=== PATIENT | female | born 1940 | race Caucasian/White ===

== ENCOUNTER 2022-03-16 23:10 | Emergency (ER) | payer MEDICARE, OTHER ==
[~2022-03-16] VITALS: Ht 160 cm; Wt 70.3 kg
--- NOTE | 2022-03-16 23:22 | PCM.EKG ---
[facility] Test Date: 2022-03-16 Test Time: 23:20:57 Pat Name: LUIS DESHPANDE Department: Patient ID: [facility]-[id number] Room: Gender: F [employer]: [employer] : 1940 Requested By: SETH DEL CASTILLO Order Number: [id number] Reading MD: Nahum Del Castillo Measurements Intervals [place] Rate: 88 P: 45 OK: 190 QRS: 54 QRSD: 105 T: 30 QT: 371 QTc: 449 Interpretive Statements Sinus rhythm No previous ECG available for comparison Electronically Signed On 03-16-2022 23:43:42 CDT by Nahum Del Castillo Please click the below link to view image of tracing.
[2022-03-16 23:29] VITALS: BP 161/92
[2022-03-16 23:30] LABS: BASOPHIL # 0.1 10^3/uL (0.0-0.1); BASOPHIL % 1.2 % (0.0-0.2); EOSINOPHIL # 0.2 10^3/uL (0.0-0.2); EOSINOPHIL % 2.4 % (0.0-5.0); LYMPHOCYTES # 1.95 10^3/uL1 (1.0-4.8); LYMPHOCYTES % 25.1 % (24.0-44.0); MEAN CORP HGB 27.8 pg (26-34); MONOCYTES # 0.9 10^3/uL (0.3-0.8); MONOCYTES % 12.1 % (5.0-12.0); NEUTROPHIL # 4.6 10^3/uL (1.8-7.7); NEUTROPHILS % 59.1 % (41.0-85.0); PLATELET COUNT 208 10^3/uL (150-400); RED CELL DISTRIBUTION WIDTH 13.7 % (11.5-14.5)
[2022-03-16 23:52] LABS: CARBON DIOXIDE 31.3 mmol/L (20.0-32)
[2022-03-16 23:58] VITALS: BP 138/61
[2022-03-17] MEDS ORDERED: KLOR-CON 10 PO STA
--- NOTE | 2022-03-17 00:03 | ER.PDOC ---
General Chief Complaint: General Complaint Stated Complaint: HYPERTENSION TRAVEL OUT OF US: No (23) Time seen by MD: 23:20 Source: patient, EMS Exam Limitations: no limitations History of Present Illness Initial Comments Patient is an 81-year-old female with past medical history of hypertension who comes in via EMS for elevated blood pressure readings. EMS states that patient has had elevated blood pressure since yesterday up to systolic blood pressure of 200. Patient has been taking her clonidine as well as her otherBlood pressure medications but that it has been high for the past 2 days in a row. EMS states that prior to arrival her blood pressure was systolic 140s to 160s. However patient states that yesterday she had pain up to her left neck and in between her shoulder blades yesterday. She said that it was a difficult pain to explain more like a pressure-like pain however she is currently not having that and has since resolved. She says she does not know what made that pain better or worse. Patient denies any diaphoresis any shortness of breath or any nausea vomiting. Patient's blood pressure on arrival was systolic 160s. Allergies: Coded Allergies: No Known Allergies (Unverified , 03/16/22) Past Medical History Medical History: hypertension Surgical History: Family History Significant Family History: no pertinent family hx Social History Alcohol Use: none Drug Use: none Reviewed Nursing Reviewed: Vital Signs, Abn. Noted, Nursing Assessment Review of Systems Constitutional: denies no symptoms reported, denies see HPI, denies chills, denies diaphoresis, denies fever, denies malaise, denies weakness, denies other EENTM: denies no symptoms reported, denies see HPI, denies eye pain, denies blurred vision, denies tearing, denies double vision, denies ear pain, denies ear discharge, denies nose pain, denies nose congestion, denies throat pain, denies throat swelling, denies mouth pain, denies mouth swelling, denies other Respiratory: denies no symptoms reported, denies see HPI, denies cough, denies orthopnea, denies shortness of breath, denies stridor, denies wheezing, denies other Cardiovascular: denies no symptoms reported, denies see HPI, denies chest pain, denies edema, denies palpitations, denies syncope; other (HTN) Gastrointestinal: denies no symptoms reported, denies see HPI, denies abdominal pain, denies constipation, denies diarrhea, denies nausea, denies vomiting, denies other Genitourinary: denies no symptoms reported, denies see HPI, denies discharge, denies dysuria, denies frequency, denies hematuria, denies pain, denies other Musculoskeletal: back pain (between shoulder blades and neck pain - resolved ) Skin: denies no symptoms reported, denies see HPI, denies change in color, denies change in hair/nails, denies dryness, denies lesions, denies lumps, denies rash, denies other Psychiatric/Neurological: denies no symptoms reported, denies see HPI, denies anxiety, denies depressed, denies emotional problems, denies headache, denies numbness, denies paresthesia, denies pre-existing deficit, denies seizure, denies tingling, denies tremors, denies weakness, denies other Hematologic/Lymphatic: denies no symptoms reported, denies see HPI, denies anemia, denies blood clots, denies easy bleeding, denies easy bruising, denies s wollen glands, denies other Immunological/Allergic: denies no symptoms reported, denies see HPI, denies fo od allergy, denies grass allergy, denies mold allergy, denies pollen allergy, denies HIV/AIDS, denies transplant Physical Exam General Appearance: No Apparent Distress, WD/WN EENT: eyes nml inspection, nml ENT inspection, pharynx nml Neck: Non-Tender, Full Range of Motion, Supple, Normal Inspection Respiratory: chest non-tender, lungs clear, normal breath sounds, no respiratory distress CVS: reg rate & rhythm, no murmur, no gallop, pulses nml, nml capillary refill, other (HTN) Gastrointestinal: Normal Bowel Sounds, No Organomegaly, No Pulsatile Mass, Non Tender Back: Normal Inspection, No CVA Tenderness Extremities: Normal Range of Motion, Non-Tender, Normal Inspection 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, No Motor/Sensory Deficits, Alert, Normal Mood/Affect, Oriented x 3 Skin: Normal Color Lymphatic: No Adenopathy Results/Orders Results/Orders Orders - SETH SIMPSON MD Cbc With Auto Diff (03/16/22 23:16) Comprehensive Metabolic Panel (03/16/22 23:16) Ekg-Routine (03/16/22 23:16) Troponin I High Sensitivity (03/16/22 23:16) Vital Signs Date Time Temp Pulse Resp B/P (MAP) Pulse Ox O2 Delivery O2 Flow Rate FiO2 03/16/22 23:29 97.9 97 16 03/16/22 23:29 97.9 97 16 161/92 (115) 94 Room Air* 0 21 03/16/22 23:29 97.9 97 16 94 Laboratory Tests Test 03/16/22 23:25 White Blood Count 7.8 10^3/uL (4.5-11.0) Red Blood Count 4.75 10^6/uL (4.00-5.20) Hemoglobin 13.2 g/dL (12.0-15.0) Hematocrit 41.4 % (36.0-46.0) Mean Corpuscular Volume 87.2 fL (78-100) Mean Corpuscular Hemoglobin 27.8 pg (26-34) Mean Corpuscular Hemoglobin Concent 31.9 g/dL (33-36.5) L Red Cell Distribution Width 13.7 % (11.5-14.5) Platelet Count 208 10^3/uL (150-400) Mean Platelet Volume 9.9 fL (7.8-11.0) Neutrophils (%) (Auto) 59.1 % (41.0-85.0) Lymphocytes (%) (Auto) 25.1 % (24.0-44.0) Monocytes (%) (Auto) 12.1 % (5.0-12.0) H Neutrophils # (Auto) 4.6 10^3/uL (1.8-7.7) Lymphocytes # (Auto) 1.95 10^3/uL1 (1.0-4.8) Monocytes # (Auto) 0.9 10^3/uL (0.3-0.8) H Absolute Immature Granulocyte (auto 0.01 10^3 u/L (0-2) Absolute Eosinophils (auto) 0.2 10^3/uL (0.0-0.2) Immature Granulocytes % 0.10 % (0.00-0.50) Eosinophils % 2.4 % (0.0-5.0) Basophils % 1.2 % (0.0-0.2) H Basophils # 0.1 10^3/uL (0.0-0.1) Sodium Level 136 mmol/L (132-145) Potassium Level 3.0 mmol/L (3.6-5.2) L Chloride Level 98.0 mmol/L (96-109) Carbon Dioxide Level 31.3 mmol/L (20.0-32) Anion Gap 9.7 Blood Urea Nitrogen 20 mg/dL (7-18) H Creatinine 0.89 mg/dL (0.59-1.40) Estimated GFR () 73.7 (>/=60) Est GFR (CKD-EPI)(Non-Afr [place]) 60.9 (>/=60) BUN/Creatinine Ratio 22.0 Glucose Level 112 mg/dL (70-110) H Calcium Level 9.1 mg/dL (8.4-10.5) Total Bilirubin 0.5 mg/dL (0.2-1.0) Aspartate Amino Transferase (AST) 20 U/L (0-35) Alanine Aminotransferase (ALT) 12 U/L (12-78) Alkaline Phosphatase 40 U/L (50-136) L Troponin I High Sensitivity 11 ng/L (0-50) Total Protein 7.0 g/dL (6.4-8.2) Albumin 3.6 g/dL (3.4-5.0) Globulin 3.4 Albumin/Globulin Ratio 1.058 Progress Progress Patient here of EMS already has a IV we will send off labs will obtain an EKG EMS already gave patient 324 of aspirin. We will continue to monitor patient. 2349reassessmentpatient's blood pressure systolic 138 patient has remained with no symptoms throughout her ER stay will discharge patient with close follow-up. Low risk for ACS or hypertensive emergency. Kidney labs are baseline patient was hypokalemic will give her some replacement before she goes and will give her information on potassium rich foods. ER DEPART Departure Time of Disposition: 00:02 Disposition: 01 HOME / SELF CARE / HOMELESS Impression: Primary Impression: Hypokalemia Additional Impression: Hypertension Condition: Improved Patient Instructions: Hypertension, Hypokalemia Additional Instructions: Please take all medications as prescribed please follow-up with your primary care provider within 1 week. If you have any new persistent or worsening symptoms or concern seek medical attention. Duration or Time Spent with Pa: 35 Problem Qualifiers Additional Impression: Hypertension Hypertension type: unspecified Qualified Codes: I10 - Essential (primary) hypertension SETH SIMPSON MD Mar 17, 2022 00:03
[2022-03-17] MEDS ORDERED: KLOR-CON 10 PO ONE (00:05)
--- NOTE | 2022-03-17 00:19 | NUR ---
EMS IV DC'D TIP INTACT, NO BLEEDING
[2022-03-17 00:20] VITALS: BP 140/67
== END 2022-03-17 00:20 | disposition home or self-care (01) ==
LOC: EDBD 23:10 → ER 23:10
DX: E87.6 Hypokalemia (principal); I10 Essential (primary) hypertension
CPT/HCPCS: 99284; 80053; 85025; 36415; 84484; 93005; J3490

== ENCOUNTER → 2022-05-06 | Outpatient (CLI) | payer MEDICARE, OTHER ==
--- NOTE | 2022-05-09 00:37 | PRP ---
DATE OF PROCEDURE: 05/06/2022 DICTATOR NAME: YNES NOEL DO VENOUS MAPPING ULTRASOUND INDICATION: Chronic venous disease. RIGHT LOWER EXTREMITY: The right greater saphenous vein measures 3 mm in its maximum diameter. There is no evidence of significant reflux. The right small saphenous vein measures 3 mm in its maximum diameter. There is no evidence of significant reflux. There is no evidence of DVT in the right lower extremity. LEFT LOWER EXTREMITY: The left greater saphenous vein measures 3 mm in its maximum diameter. There is no evidence of significant reflux. The left small saphenous vein measures 2 mm in its maximum diameter. There is no evidence of significant reflux. There is no evidence of DVT in the left lower extremity. IMPRESSION: * The bilateral greater saphenous vein does not show significant reflux. * The bilateral small saphenous vein does not show significant reflux. * There is no evidence of deep vein thrombosis in the bilateral lower extremities. Selin ARGUETA D.O. DR: SOPHIE TID: [id number] RECEIPT: [id number]
== END | disposition home or self-care (01) ==
LOC: RAD 13:37
PROVIDERS: ATTEND Nurse Practitioner Family
DX: I87.2 Venous insufficiency (chronic) (peripheral) (principal)
CPT/HCPCS: 93970

== ENCOUNTER → 2022-06-11 | Outpatient (CLI) | payer MEDICARE, OTHER ==
--- NOTE | 2022-06-11 10:52 | PCM.ECHO ---
APPROVED REPORT EXAM: Comprehensive 2D, Doppler, and color-flow Echocardiogram. Patient Location: OUT-PATIENT Indications Hypertension/HDD Chest Pain 2D Dimensions LVOT Diameter 2.06 (1.8-2.4cm) LVEF(%) 58.24 (>50%) M-Mode Dimensions RVDd 0.80 (2.1-3.2cm) Left Atrium(MM) 3.40 (2.5-4.0cm) IVSd 0.95 (0.7-1.1cm) Aortic Root 2.60 (2.2-3.7cm) LVDd 5.20 (4.0-5.6cm) Aortic Cusp Exc 1.70 (1.5-2.0cm) PWd 0.55 (0.7-1.1cm) MV EPSS 0.34 (<0.5cm) IVSs 1.30 cm FS (%) 28.25 % LVDs 3.70 (2.0-3.8cm) ESV(Teich) 59.70 ml PWs 1.05 cm LVEF(%) 54.26 (>50%) Volumes Biplane 2D LV Volumes Biplane 2D LA Volumes LVEDv A4C 113.95 mL LA ESV Index LVESv A4C 47.59 mL Aortic Valve AoV Peak Alejandro. 1.35 m/s AoV VTI 32.20 cm AO Peak GR. 7.40 mmHg AO Mean GR. 4.95 mmHg LVOT VTI 24.91 cm LVOT Peak Alejandro. 1.16 m/s EMILY(VTI)/BSA 2.59 cm2/m2 EMILY (VTI) 2.59 cm2 Mitral Valve MV E Velocity 1.25m/s MR Peak Gr. 43.85mmHg MV A Velocity 1.60m/s TDI Lateral E' P. V 0.12m/s Medial E' P. V 0.10m/s Pulmonary Valve PV Peak Velocity 0.75m/s PV Peak Grad. 2.40mmHg RVOT VTI 15.35cm Tricuspid Valve TR P. Velocity 2.90m/s RAP ESTIMATE 10.00mmHg TR Peak Gr. 33.65mmHg RVSP 43.65mmHg LEFT VENTRICLE The left ventricle is normal size. The left ventricular systolic function is normal. The left ventricular ejection fraction is within the normal range. There is normal left ventricular wall thickness. There is normal LV segmental wall motion. Pseudonormalized E/A reversal consistent with Stage 2 Diastolic Dysfunction. There is no ventricular septal defect visualized. No left ventricle thrombus noted on this study. LVEF is 60-65%. RIGHT VENTRICLE The right ventricle is normal size. The right ventricular systolic function is normal. There is normal right ventricular wall thickness. ATRIA The left atrium size is normal. The right atrium size is normal. The interatrial septum is intact with no evidence for an atrial septal defect. AORTIC VALVE The aortic valve is normal in structure. There is no aortic valvular stenosis. No aortic regurgitation is present. There is no aortic valvular vegetation. MITRAL VALVE The mitral valve is normal in structure. There is no mitral valve stenosis. Mild mitral regurgitation. There is no evidence of mitral valve vegetations. TRICUSPID VALVE The tricuspid valve is normal in structure. There is no tricuspid valve stenosis. Mild tricuspid regurgitation. There is no tricuspid valve vegetations. PULMONIC VALVE Pulmonic valve is not well visualized. There is no pulmonic valvular stenosis. There is no pulmonic valvular regurgitation. GREAT VESSELS The aortic root is normal in size. Pulmonary artery is not well visualized. Aortic arch is not well visualized. The IVC is normal in size and collapses >50% with inspiration. PERICARDIUM There is no pericardial effusion. There is no pleural effusion. Other Information Study Quality: Fair <Conclusion> The left ventricular systolic function is normal. LVEF is 60-65%. Pseudonormalized E/A reversal consistent with Stage 2 Diastolic Dysfunction. Mild mitral regurgitation. Mild tricuspid regurgitation. Electronically signed by : YNES NOEL. 06/11/2022 10:52:37
== END | disposition home or self-care (01) ==
LOC: RAD 08:59
PROVIDERS: ATTEND Internal Medicine Interventional Cardiology
DX: I08.1 Rheumatic disorders of both mitral and tricuspid valves (principal); I10 Essential (primary) hypertension
CPT/HCPCS: 93306

== ENCOUNTER → 2022-06-13 | Outpatient (CLI) | payer MEDICARE, OTHER ==
[~2022-06-13] MED LIST: LEXISCAN IV ONE
--- NOTE | 2022-06-14 02:28 | STRESS ---
DATE OF SERVICE: 06/13/2022 DICTATOR NAME: YNES SHEEHANANTONIALarry CARDIAC STRESS TEST INDICATION: Chest pain. FINDINGS: Baseline EKG shows normal sinus rhythm with nonspecific ST-T wave changes. Stress EKG shows sinus tachycardia with premature ventricular complexes, unchanged from baseline. At the end of recovery, EKG shows normal sinus rhythm, unchanged from baseline. Baseline heart rate is 81 beats per minute and amanda to 107 beats per minute during stress. At the end of recovery, the heart rate is 98 beats per minute. Baseline blood pressure is 163/63 and remained the same during stress. At the end of recovery, the blood pressure was 155/49. Blood pressure and heart rate were appropriate for stress. There were no significant symptoms noted during stress. There were no arrhythmias noted during stress. EKG portion of stress test is negative for myocardial ischemia. Nuclear images were obtained with a rest dose of 11.84 mCi technetium-99 sestamibi and a stress dose of 33.9 mCi technetium 99 sestamibi. Nuclear images reveal homogeneous tracer distribution across all wall segments as visualized in both rest and stress images, with no evidence of myocardial ischemia or infarction. Left ventricular ejection fraction is 85%. EDV is 37 mL, ESV is 6 mL. The left ventricle is normal in size. Gated motion images shows normal wall motion across all segments of the left ventricle. TID 0.89. There is no evidence of diaphragmatic attenuation artifact. IMPRESSION: * Normal myocardial perfusion imaging with no evidence of myocardial ischemia or infarction. * Left ventricular ejection fraction of 85%. * This is a negative study. Selin ARGUETA D.O. DR: NAYAN TID: [id number] RECEIPT: [id number]
== END | disposition home or self-care (01) ==
LOC: RAD 07:44
PROVIDERS: ATTEND Internal Medicine Interventional Cardiology
DX: I10 Essential (primary) hypertension (principal); R07.9 Chest pain, unspecified
CPT/HCPCS: 78452; 93017; J2785; A9500